=== PATIENT | male | born 1960 | race Two or more races ===

== ENCOUNTER 2018-01-29 15:07 | Emergency (ER) | payer OTHER ==
[~2018-01-29] VITALS: Ht 177.8 cm; Wt 134.7 kg
--- NOTE | 2018-01-29 15:15 | NUR ---
PT PRESENTED TO THE ER WITH A C/O INTERMITTENT LEFT SIDED CP SINCE YESTERDAY AFTERNOON. PT IS [place]AD[place] SPEAKING ONLY. PT'S DAUGHTER AND SON ARE AT THE BEDSIDE TRANSLATING FOR PT. PT IS ON THE MONITOR AND CONTINOUS PULSE OX. DR. DE LA CRUZ IS AT THE BEDSIDE EVALUATING THE PT. RESP EVEN AND UNLABORED. PT PLACED ON 2L O2 VIA NC. PT WAS SATURATING AT 92% ON RA.
--- NOTE | 2018-01-29 15:18 | NUR ---
STARTED IV IN RT HAND. BLOOD WAS DRAWN AND SENT TO LAB.
[2018-01-29] MEDS ORDERED: ONDANSETRON HCL/PF 4 MG/2 ML VIAL ONE (15:25)
[2018-01-29] MEDS ORDERED: MORPHINE SULFATE INJ 4 MG/ML DISP.SYRIN ONE (15:25)
[2018-01-29] MEDS ORDERED: ASPIRIN 325 MG TABLET ONE (15:26)
[2018-01-29 15:29] LABS: LYMPHOCYTES # (AUTO) 2.2 /CMM (0.8-4.8); LYMPHOCYTES % (AUTO) 31.7 % (20.0-44.0); WHITE BLOOD COUNT (AUTO) 7.1 K/uL (4.3-11.0)
[2018-01-29] MEDS ORDERED: ASPIRIN 325 MG TABLET PO ONE (15:30)
[2018-01-29] MEDS ORDERED: MORPHINE SULFATE INJ 2 MG/ML DISP.SYRIN IV ONE (15:30)
[2018-01-29] MEDS ORDERED: ONDANSETRON HCL/PF - ER 4 MG/2 ML VIAL IV ONE (15:30)
--- NOTE | 2018-01-29 15:31 | NUR ---
PT REC'D ASPIRIN ORDERED. PT REFUSED THE MORPHINE AND ZOFRAN AT THIS TIME.
[2018-01-29 15:35] LABS: BASOPHILS # (AUTO) 0.1 /CMM (0.0-0.2); BASOPHILS % (AUTO) 1.2 % (0.0-2.0); EOSINOPHILS % (AUTO) 6.7 % (0.0-6.0); HEMATOCRIT 43 % (39-51); MEAN CORPUSCULAR HGB CONC 35 g/dl (31.0-36.0); MEAN CORPUSCULAR VOLUME 89 fL (80-96); MONOCYTES # (AUTO) 0.6 /CMM (0.1-1.30); MONOCYTES % (AUTO) 8.7 % (2.0-12.0); NEUTROPHILS # (AUTO) 3.7 /CMM (1.8-8.9); NEUTROPHILS % (AUTO) 51.7 % (43.0-81.0); PLATELET COUNT (AUTO) 231 /CMM (150-450); RDW COEFFICIENT OF VARIATION 12.4 (11.5-15.0); RED BLOOD CELL COUNT(AUTO) 4.78 MIL/uL (4.5-6.0)
[2018-01-29 15:57] LABS: CALCIUM, SERUM 8.9 mg/dL (8.5-10.1); CARBON DIOXIDE 31 mmol/L (21-32); CHLORIDE 101 mmol/L (98-107); CREATININE 1.1 mg/dL (0.6-1.3); GLUCOSE 204 mg/dL (74-106); POTASSIUM 3.8 mmol/L (3.5-5.1); SODIUM SERUM 138 mmol/L (136-145); UREA NITROGEN, BLOOD 22 mg/dL (7-18)
[2018-01-29 16:00] LABS: INR 1.01 (0.85-1.15)
[2018-01-29 16:02] LABS: ALANINE AMINOTRANSFERASE 42 U/L (12-78); ALBUMIN 3.7 g/dL (3.4-5.0); ALKALINE PHOSPHATASE 61 U/L (46-116); ASPARTATE AMINOTRANSFERASE 31 U/L (15-37); BILIRUBIN,DIRECT 0.1 mg/dL (0.0-0.2); BILIRUBIN,TOTAL 0.6 mg/dL (0.2-1.0); TOTAL PROTEIN, SERUM 7.4 g/dL (6.4-8.2)
[2018-01-29 16:05] LABS: TROPONIN I < 0.017 ng/mL (0.00-0.056)
--- NOTE | 2018-01-29 16:30 | NUR ---
IV removed. Catheter intact and site benign. Pressure and 4x4 applied to site. No bleeding noted.Patient does not wish to proceed with medical care recommended by Dr. DE LA CRUZ. Patient given information related to possible complications, up to and including , which could occur as a result of leaving the hospital at this time. Patient verbalizes understanding of risks involved due to leaving against medical advice. Patient has signed AMA form.
--- NOTE | 2018-01-29 16:33 | NUR ---
PT AMBULATED OUT WITH A STEADY GAIT. VSS. PT'S FAMILY IS TAKING PT HOME. COPY OF ALL LABS, EKG, AND IMAGING FINDINGS. PT WAS TOLD BY DR DE LA CRUZ THAT HE SHOULD NOT GET ON A PLANE UNTIL HE WAS SEEN AND EVALUATED BY A ROLL GRINDER OPERATOR. PT WAS WARNED THAT HE COULD HAVE A HEART ATTACK. PT'S FAMILY WERE AT THE BEDSIDE AND ALSO EXPRESS UNDERSTANDING OF LEAVING AT THIS TIME.
[2018-01-29 16:40] VITALS: BP 157/82
== END 2018-01-29 16:41 | disposition left against medical advice (07) ==
LOC: ER 15:12
DX: I20.9 Angina pectoris, unspecified (principal); Z53.20 Procedure and treatment not carried out because of patient's decision for unspecified reasons; I10 Essential (primary) hypertension
CPT/HCPCS: 36415; 71045-TC; 80048-TC; 80076-TC; 84484-TC; 85025-TC; 85730-TC; A4606; J2270; J2405; Z7610